=== PATIENT | male | born 1950 | race Caucasian/White ===

== ENCOUNTER → 2016-05-13 | Outpatient (CLI) | payer OTHER ==
[2016-05-13 12:56] LABS: BUN/CREATININE RATIO 10.83 (6-20); CALCIUM 8.7 mg/dL (8.7-10.7); CREATININE 4.8 mg/dL (0.70-1.50); PHOSPHORUS 3.9 mg/dl (2.4-4.3); POTASSIUM 4.6 meq/L (3.8-5.2)
== END ==
LOC: MOB LAB 12:17
DX: E11.22 Type 2 diabetes mellitus with diabetic chronic kidney disease (principal); I12.9 Hypertensive chronic kidney disease with stage 1 through stage 4 chronic kidney disease, or unspecified chronic kidney disease; N18.4 Chronic kidney disease, stage 4 (severe)
CPT/HCPCS: 36415; 80048; 84100

== ENCOUNTER → 2016-06-05 | Outpatient (CLI) | payer OTHER ==
[2016-06-05 13:39] LABS: BASOPHILS # (AUTO) 0.02 10*3/UL; BASOPHILS % (AUTO) 0.2 % (0-1); EOSINOPHILS % (AUTO) 0.5 % (0-8); HEMATOCRIT 33.8 % (42.0-52.0); IMM GRAN % (AUTO) 0.2 % (0-5); IMM GRAN# (AUTO) 0.02 10*3/UL; LYMPHOCYTES # (AUTO) 0.98 10*3/uL; LYMPHOCYTES % (AUTO) 9.8 % (10-50); MEAN CORPUSCULAR HEMOGLOBIN 28.6 PG (27-31); MEAN CORPUSCULAR HGB CONC 32.5 g/dL (33-37); MEAN PLATELET VOLUME 10.9 FL (7.4-12.2); NEUTROPHILS # (AUTO) 8.53 10*3/UL; NEUTROPHILS % (AUTO) 85.3 % (50-80); RDW COEFFICIENT OF VARIATION 14.9 % (11.5-14.5); RED BLOOD COUNT 3.85 10^6/uL (4.70-6.10)
[2016-06-05 13:45] LABS: PLATELET MORPHOLOGY COMMENT NORMAL MORPHOLOGY (NORM)
[2016-06-05 14:12] LABS: BILIRUBIN,TOTAL 0.4 mg/dL (0.3-1.2); BUN/CREATININE RATIO 13.77 (6-20); CALCIUM 9.4 mg/dL (8.7-10.7); CREATININE 4.5 mg/dL (0.70-1.50); PHOSPHORUS 5.1 mg/dl (2.4-4.3); TOTAL PROTEIN 6.8 g/dL (6.1-8.0)
[2016-06-06 10:18] LABS: PARATHYROID HORMONE 106 pg/mL (15-65)
== END ==
LOC: LAB 13:15
DX: I12.9 Hypertensive chronic kidney disease with stage 1 through stage 4 chronic kidney disease, or unspecified chronic kidney disease (principal); N18.4 Chronic kidney disease, stage 4 (severe); D69.1 Qualitative platelet defects; N25.0 Renal osteodystrophy
CPT/HCPCS: 36415; 80053; 83970; 84100; 85025

== ENCOUNTER → 2016-07-01 | Outpatient (CLI) | payer OTHER ==
[2016-07-01 14:04] LABS: BASOPHILS # (AUTO) 0.01 10*3/UL; BASOPHILS % (AUTO) 0.1 % (0-1); EOSINOPHILS % (AUTO) 0.5 % (0-8); HEMATOCRIT 31.5 % (42.0-52.0); HEMOGLOBIN 10.3 g/dL (14.0-18.0); IMM GRAN % (AUTO) 0.6 % (0-5); IMM GRAN# (AUTO) 0.05 10*3/UL; LYMPHOCYTES # (AUTO) 0.78 10*3/uL; LYMPHOCYTES % (AUTO) 9.1 % (10-50); MEAN CORPUSCULAR HEMOGLOBIN 29.1 PG (27-31); MEAN CORPUSCULAR HGB CONC 32.7 g/dL (33-37); MONOCYTES # (AUTO) 0.56 10*3/UL (0.3-0.8); MONOCYTES % (AUTO) 6.5 % (5-15); NEUTROPHILS # (AUTO) 7.11 10*3/UL; NEUTROPHILS % (AUTO) 83.2 % (50-80); RDW COEFFICIENT OF VARIATION 14.9 % (11.5-14.5); RED BLOOD COUNT 3.54 10^6/uL (4.70-6.10); WHITE BLOOD COUNT 8.55 10^3/uL (4.8-10.8)
[2016-07-01 14:08] LABS: PLATELET MORPHOLOGY COMMENT NORMAL MORPHOLOGY (NORM)
[2016-07-01 14:29] LABS: BUN/CREATININE RATIO 12.76 (6-20); CALCIUM 8.5 mg/dL (8.7-10.7); CREATININE 4.7 mg/dL (0.70-1.50); LDL CHOLESTEROL,CALCULATED 64.4 mg/dL; PHOSPHORUS 4.1 mg/dl (2.4-4.3); POTASSIUM 5.4 meq/L (3.8-5.2)
== END ==
LOC: MOB LAB 12:22
DX: I12.9 Hypertensive chronic kidney disease with stage 1 through stage 4 chronic kidney disease, or unspecified chronic kidney disease (principal); N18.4 Chronic kidney disease, stage 4 (severe); D63.1 Anemia in chronic kidney disease; N25.81 Secondary hyperparathyroidism of renal origin; E78.5 Hyperlipidemia, unspecified
CPT/HCPCS: 36415; 80048; 80061; 82306; 84100; 85025

== ENCOUNTER → 2016-07-28 | Outpatient (CLI) | payer OTHER ==
[2016-07-28 12:15] LABS: BASOPHILS # (AUTO) 0.02 10*3/UL; BASOPHILS % (AUTO) 0.3 % (0-1); EOSINOPHILS # (AUTO) 0.05 10*3/UL; EOSINOPHILS % (AUTO) 0.7 % (0-8); HEMATOCRIT 31.6 % (42.0-52.0); HEMOGLOBIN 10.3 g/dL (14.0-18.0); LYMPHOCYTES # (AUTO) 0.68 10*3/uL; MEAN CORPUSCULAR HEMOGLOBIN 29.1 PG (27-31); MEAN CORPUSCULAR HGB CONC 32.6 g/dL (33-37); MEAN PLATELET VOLUME 11.3 FL (7.4-12.2); MONOCYTES # (AUTO) 0.32 10*3/UL (0.3-0.8); MONOCYTES % (AUTO) 4.8 % (5-15); NEUTROPHILS # (AUTO) 5.58 10*3/UL; NEUTROPHILS % (AUTO) 83.7 % (50-80); RED BLOOD COUNT 3.54 10^6/uL (4.70-6.10)
[2016-07-28 12:21] LABS: PLATELET MORPHOLOGY COMMENT NORMAL MORPHOLOGY (NORM); RBC MORPHOLOGY COMMENT NORMAL MORPHOLOGY (NORM); WBC MORPHOLOGY COMMENT NORMAL MORPHOLOGY (NORM)
[2016-07-28 12:23] LABS: BUN/CREATININE RATIO 13.65 (6-20); CALCIUM 8.6 mg/dL (8.7-10.7); PHOSPHORUS 4.7 mg/dl (2.4-4.3)
== END ==
LOC: MOB LAB 10:44
DX: N18.4 Chronic kidney disease, stage 4 (severe) (principal); D63.1 Anemia in chronic kidney disease; M1A.30X0 Chronic gout due to renal impairment, unspecified site, without tophus (tophi)
CPT/HCPCS: 36415; 80048; 84100; 84550; 85025

== ENCOUNTER → 2016-09-18 | Outpatient (CLI) | payer OTHER | LOC: MMPC 11:11 | DX: N18.4 Chronic kidney disease, stage 4 (severe) (principal); L98.8 Other specified disorders of the skin and subcutaneous tissue; G47.33 Obstructive sleep apnea (adult) (pediatric); E03.9 Hypothyroidism, unspecified; R41.89 Other symptoms and signs involving cognitive functions and awareness; K21.9 Gastro-esophageal reflux disease without esophagitis; E78.5 Hyperlipidemia, unspecified; D69.1 Qualitative platelet defects; M48.9 Spondylopathy, unspecified; L57.0 Actinic keratosis | CPT/HCPCS: 17000 ×2; 17003 ×2; 99213; G0463 ==

== ENCOUNTER → 2016-11-03 | Outpatient (CLI) | payer OTHER | LOC: MMPC 11:11 | DX: N18.6 End stage renal disease (principal); R53.81 Other malaise; G47.33 Obstructive sleep apnea (adult) (pediatric); E03.9 Hypothyroidism, unspecified; R41.89 Other symptoms and signs involving cognitive functions and awareness; K21.9 Gastro-esophageal reflux disease without esophagitis; E78.5 Hyperlipidemia, unspecified; D69.1 Qualitative platelet defects; M48.9 Spondylopathy, unspecified | CPT/HCPCS: 99213; G0463 ==